=== PATIENT | female | born 1925 | race Caucasian/White ===

== ENCOUNTER 2016-06-27 14:00 | Observation (INO) | payer MEDICARE, OTHER ==
[~2016-06-27 14:00] MED LIST: ADULT ASPIRIN81 MG PO; ATARAX25 MG PO; ATIVAN1 MG PO; ATROPINE CARE2 ML; BACLOFEN10 M1 PO; BACLOFEN10 MG PO; BACTROBAN15 GM TP; COMBIVENT INH14.7 GM; CYANOCOBAL1000 MCG/3 SC; CYCLOBENZAPRINE5 M1 PO; CYMBALTA30 M1 PO; DILTIAZEM 24HR240 MG PO; DILTIAZEM ER360 M1 PO; ECONOPRED PLUS10 ML; ESTRACE1 M3 PO; HYDROCHLOROTHIA25 M1 PO; LEVAQUIN500 MG; LEVOTHROID125 MCG PO; LEVOTHROID175 MCG PO; LEXAPRO10 M1 PO; LEXAPRO20 M1 PO; LIDOCAINE1 EACH TOP; LISINOPRIL20 MG; LISINOPRIL20 MG PO; MIRALAX17 GM PO; NORCO 5-325 TA1 EACH PO; NORVASC5 MG; OFLOXACIN5 M3 OT; OXYCONTIN10 M1 PO; PERCOCET 5-3251 EACH PO; PREMARIN1.25 MG; PREMARIN1.25 MG PO; PROMETHAZINE12.5 M2 PO; SEROQUEL25 M1 PO; SYNTHROID100 MC1 PO; SYNTHROID200 MCG; ULTRAM50 M1 PO; VIGAMOX3 ML; VIT B12; VITAMIN C500 M3 PO; VITAMIN E400 UNI4 PO; ZESTRIL20 MG; ZITHROMAX250 M1 PO
[2016-06-27 16:16] LABS: BASO % 0.2 % (0-2); EOS % 0.8 % (0-7); EOSINOPHIL ABSOLUTE COUNT 0.1 tho/cmm (0.0-0.7); HCT-HEMATOCRIT 37.6 % (34.0-49.0); HGB-HEMOGLOBIN 12.7 gm/dl (12.0-15.5); IMMATURE GRANULOCYTES ABSOLUTE 0.02 tho/cmm (0-0.03); IMMATURE GRANULOCYTES PERCENT 0.2 % (0-0.3); LYMPH % 20.4 % (20-45); LYMPH ABSOLUTE COUNT 1.8 tho/cmm (0.8-4.5); MCH (MEAN CORPUSCULAR HGB) 31.9 pg (28.0-32.0); MCHC MEAN CORPUSCULAR HGB CONC 33.8 % (32.0-36.0); MCV (MEAN CELL VOLUME) 94.5 fl (82.0-96.0); MEAN PLATELET VOLUME 9.8 cmc (9.4-12.4); MONO % 5.5 % (0-12); MONOCYTE ABSOLUTE COUNT 0.5 tho/cmm (0.0-1.2); NEUTROPHIL ABSOLUTE COUNT 6.3 tho/cmm (1.6-8.0); NEUTROPHIL-AUTOMATED 6.3 tho/cmm (1.6-8.0); NEUTROPHILS % 72.9 % (40-80); PLATELET COUNT 287 tho/cmm (150-450); RED BLOOD COUNT 3.98 mil/cmm (4.00-5.20); RED CELL DISTRIBUTION WIDTH 12.7 % (12.4-16.4); WHITE BLOOD COUNT 8.6 tho/cmm (4.0-10.0)
[2016-06-27 16:29] LABS: ALB/GLOB RATIO 1.2 (0.8-2.0); ALBUMIN 3.7 g/dl (3.5-5.2); ALKALINE PHOSPHATASE 65 U/L (35-104); ALT/SGPT 12 U/L (0-33); ANION GAP 10 mmol/L (5-15); AST/SGOT 19 U/L (0-32); BILIRUBIN,TOTAL 0.4 mg/dl (0-1.0); BLOOD UREA NITROGEN 20 mg/dl (6-25); CALCIUM 9.1 mg/dl (8.6-10.2); CARBON DIOXIDE-VENOUS 29 mmol/L (22-29); CHLORIDE 96 mmol/L (98-110); CREATININE 1.09 mg/dl (0.67-1.17); GLUCOSE 108 mg/dl (65-120); POTASSIUM 4.5 mmol/L (3.4-5.0); SODIUM 135 mmol/L (135-146); eGFR VALUE FOR BLACK 57 mL/Min
[2016-06-27 16:31] LABS: TROPONIN T <0.01 ng/ml (<0.01)
[2016-06-27 16:34] LABS: ESR-ERYTHROCYTE SED RATE 17 mm/hr (0-30)
[2016-06-27] MEDS ORDERED: LISINOPRIL40 M1 PO (16:44)
[2016-06-27 17:25] LABS: URINE APPEARANCE CLOUDY; URINE BILIRUBIN NEGATIVE (NEG); URINE BLOOD NEGATIVE (NEG); URINE COLOR YELLOW; URINE GLUCOSE (UA) NEGATIVE (NEG); URINE KETONE NEGATIVE (NEG); URINE LEUKOCYTE ESTERASE POSITIVE (NEG); URINE NITRITE NEGATIVE (NEG); URINE PROTEIN NEGATIVE (NEG)
[2016-06-27 17:31] LABS: URINE RBC 0 /[HPF] (0-5); URINE WBC 0-2 /[HPF] (0-5)
[2016-06-28 05:49] LABS: ANION GAP 13 mmol/L (5-15); BLOOD UREA NITROGEN 15 mg/dl (6-25); CALCIUM 7.8 mg/dl (8.6-10.2); CARBON DIOXIDE-VENOUS 24 mmol/L (22-29); CHLORIDE 103 mmol/L (98-110); GLUCOSE 114 mg/dl (65-120); SODIUM 140 mmol/L (135-146); eGFR VALUE FOR BLACK >60 mL/Min
[2016-06-28 06:01] LABS: POTASSIUM 4.6 mmol/L (3.4-5.0)
[2016-06-28 06:58] LABS: BASO % 0.3 % (0-2); EOS % 1.7 % (0-7); EOSINOPHIL ABSOLUTE COUNT 0.2 tho/cmm (0.0-0.7); HCT-HEMATOCRIT 32.1 % (34.0-49.0); HGB-HEMOGLOBIN 10.8 gm/dl (12.0-15.5); IMMATURE GRANULOCYTES ABSOLUTE 0.01 tho/cmm (0-0.03); IMMATURE GRANULOCYTES PERCENT 0.1 % (0-0.3); LYMPH % 22.9 % (20-45); LYMPH ABSOLUTE COUNT 2.1 tho/cmm (0.8-4.5); MCH (MEAN CORPUSCULAR HGB) 31.9 pg (28.0-32.0); MCHC MEAN CORPUSCULAR HGB CONC 33.6 % (32.0-36.0); MCV (MEAN CELL VOLUME) 94.7 fl (82.0-96.0); MEAN PLATELET VOLUME 9.8 cmc (9.4-12.4); MONO % 9.7 % (0-12); MONOCYTE ABSOLUTE COUNT 0.9 tho/cmm (0.0-1.2); NEUTROPHIL ABSOLUTE COUNT 6.1 tho/cmm (1.6-8.0); NEUTROPHIL-AUTOMATED 6.1 tho/cmm (1.6-8.0); NEUTROPHILS % 65.3 % (40-80); PLATELET COUNT 237 tho/cmm (150-450); RED BLOOD COUNT 3.39 mil/cmm (4.00-5.20); RED CELL DISTRIBUTION WIDTH 13.1 % (12.4-16.4); WHITE BLOOD COUNT 9.3 tho/cmm (4.0-10.0)
[2016-07-02 16:46] LABS: URINE BILIRUBIN SMALL (NEG); URINE BLOOD SMALL (NEG); URINE GLUCOSE (UA) NEGATIVE (NEG); URINE KETONE NEGATIVE (NEG); URINE LEUKOCYTE ESTERASE NEGATIVE (NEG); URINE NITRITE NEGATIVE (NEG)
[2016-07-02 16:47] LABS: URINE APPEARANCE CLEAR; URINE COLOR YELLOW; URINE SPECIFIC GRAVITY 1.024 (1.003-1.030)
[2016-07-02] MEDS ORDERED: ROXICODONE5 M2 PO (16:48)
[2016-07-02] MEDS ORDERED: TYLENOL EXTRA500 M1 PO (16:51)
[2016-07-02 16:52] LABS: URINE PROT SULFOSALICYLIC ACID TRACE (NEG)
[2016-07-02 16:53] LABS: URINE EPITHELIAL CELLS 0-5 /[HPF] (0-10); URINE RBC 0-1 /[HPF] (0-5); URINE WBC RARE /[HPF] (0-5)
[2016-07-02] MEDS ORDERED: IMODIUM A-D2 M3 PO (16:53)
[2016-08-07] MEDS ORDERED: PERCOCET 5-3251 EACH PO (14:27)
[2016-11-02] MEDS ORDERED: HYDROCODON-ACE1 EA16 PO (11:59)
[2016-11-02] MEDS ORDERED: CYMBALTA60 M1 PO (11:59)
[2016-11-02] MEDS ORDERED: TRIAMCINOLONE A15 G2 TP (12:01)
[2016-11-02] MEDS ORDERED: ALLEGRA ALLERG180 M1 PO (12:02)
[2016-11-02] MEDS ORDERED: AZELASTINE137 MCG/01 (12:02)
[2016-11-02] MEDS ORDERED: NIZORAL120 M1 TP (12:03)
[2016-12-11] MEDS ORDERED: TYLENOL325 M2 PO (10:13)
[2016-12-11] MEDS ORDERED: SENNA LAX8.6 M2 PO (10:18)
[2016-12-11] MEDS ORDERED: CYCLOBENZAPRINE5 M1 PO (10:19)
[2016-12-29] MEDS ORDERED: CATAPRES0.1 M1 PO (15:43)
[2016-12-29] MEDS ORDERED: TROLAMINE SALIC85 GM TP (15:49)
[2016-12-31] MEDS ORDERED: EUCERIN CREME120 G1 TOP (12:28)
[2016-12-31] MEDS ORDERED: HYDROCORTISONE 1% TOP (12:30)
== END 2016-07-02 17:31 ==
LOC: EDMED 14:00 → EMR2 18:33 → 6WE 19:35
PROVIDERS: Emergency Medicine; ADMIT Hospitalist
DX: G89.29 Other chronic pain (principal); M54.5 Low back pain; I25.10 Atherosclerotic heart disease of native coronary artery without angina pectoris; E03.9 Hypothyroidism, unspecified; I10 Essential (primary) hypertension; Z95.0 Presence of cardiac pacemaker; E78.5 Hyperlipidemia, unspecified; K22.2 Esophageal obstruction; Z90.710 Acquired absence of both cervix and uterus; Z90.49 Acquired absence of other specified parts of digestive tract; Z98.1 Arthrodesis status; Z79.899 Other long term (current) drug therapy; Z88.0 Allergy status to penicillin; Z88.5 Allergy status to narcotic agent; Z88.8 Allergy status to other drugs, medicaments and biological substances
CPT/HCPCS: G0378; G8978-GP-CK; G8979-GP-CK; G8980-GP-CJ; G8980-GP-CK; G8987-GO-CK; G8988-GO-CJ; G8989-GO-CJ; J3010; J7030